=== PATIENT | male | born 1980 | race Caucasian/White ===

== ENCOUNTER 2022-11-26 07:53 | Outpatient (CLI) | payer OTHER, SELFPAY ==
--- NOTE | ~2022-11-26 | XR_ITS ---
XR chest 2V 11/26/2022 09:11 Indication: Asthma. Procedure: PA and lateral views the chest Comparison: Comparison to multiple prior studies sequentially, with oldest reviewed study dated 03/09. Findings: There is been progression of bandlike opacities in the lung bases, most likely atelectasis/ scarring. There is scoliosis. No edema, pleural effusion or pneumothorax. No acute osseous abnormalit y. Impression: 1: Continued progression of bandlike opacities of the lung bases, most likely atelectasis/scarring. Reviewed, dictated and finalized at location [] Impression: 1: Continued progression of bandlike opacities of the lung bases, most likely a telectasis/scarring.
[2022-11-26 08:21] LABS: Basophils Absolute Auto 0.1 K/mm3 (0.0-0.1); Basophils Percent Auto 0.8 % (0.2-1.2); Eosinophils Absolute Auto 0.2 K/mm3 (0-0.3); Eosinophils Percent Auto 2.5 % (0-4.4); Hematocrit 46.8 % (42.0-52.0); Hemoglobin 15.7 g/dL (14.0-18.0); Immature Granulocyte Absolute 0.03 K/mm3 (0.00-0.031); Immature Granulocyte Percent A 0.3 % (0-0.5); Lymphocytes Percent Auto 18.3 % (18.3-44.2); Mean Corpuscular HGB Conc 33.5 g/dl (32-36); Mean Corpuscular Hemoglobin 30.7 pg (26-34); Mean Corpuscular Volume 91.4 fl (80-100); Mean Platelet Volume 8.8 fl (7.4-10.4); Monocytes Absolute Auto 0.8 K/mm3 (0.1-0.6); Monocytes Percent Auto 8.6 % (2.6-8.5); Neutrophils Absolute Auto 6.1 K/mm3 (1.3-6.7); Neutrophils Percent Auto 69.5 % (45.5-73.1); Platelet Count Result 227 k/mm3 (150-375); Red Blood Count 5.12 M/mm3 (4.6-6.20); Red Cell Distribution Width 13.2 % (11.5-14.5); White Blood Count 8.8 K/mm3 (4.5-10.0)
--- NOTE | 2022-11-30 19:22 | WPDPFTINT ---
PFT Procedure Performed PFT Procedure Performed Spirometry with Pre/Post Bronchodilator Plethysmography (Lung Vol) Diffusing Cap (DLCO) Flow Vol Loop PFT Interpretation DOS: 11/26/2022 REQUESTING: Beto Harrington APRN REASON FOR TESTING: Asthma PULMONARY FUNCTION TESTS Spirometry: pre bronchodilator FEV1 is 1.55 L, 35% predicted, severely reduced. The pre bronchodilator FVC is 3.23 L, 58%, moderately reduced. The FEV1/FVC ratio is 48%, reduced consistent with airflow obstruction. After bronchodilator, FEV1 increases 36%, 2.11 L, 48% predicted. This is still below normal. After bronchodilator, there is a 13% increase in the FVC, 3.64 L, 66% predicted. The FEV1/FVC ratio after bronchodilator is 58%, reduced. This is a significant response to bronchodilator. Lung volumes: Total lung capacity is 6.77 L, 92% predicted, normal. Residual volume is 3.27 L, 163% predicted, severe air trapping. RV/TLC is 48%, above normal, consistent with air trapping. Airway resistance is elevated, 4.52 cmH20/L/sec, 286% predicted. Diffusion: DLCO is 21.5, 65%, reduced. DLCO/VA 4.58, 98%, normal. Flow volume loop: There is coving of the expiratory limb consistent with airflow obstruction. IMPRESSION: This study shows severe obstructive ventilatory impairment with a robust response to bronchodilator, air trapping and mild diffusion impairment which corrects for alveolar volume. Compared to a prior study 04/28/2022 at [facility], the pattern is similar; he had a moderate obstructive airflow impairment, air trapping and reduced diffusing capacity corrects to normal after adjustment for alveolar volume. He also had a 7% drop after bronchodilator administration. Liseth Oleary MD
== END 2022-11-26 07:54 | disposition home or self-care (01) ==
PROVIDERS: PCP Physician Assistant; Visit Provider Internal Medicine Pulmonary Disease
DX: J44.9 Chronic obstructive pulmonary disease, unspecified (principal); J45.909 Unspecified asthma, uncomplicated; R94.2 Abnormal results of pulmonary function studies
CPT/HCPCS: 36415; 71046; 85025; 94060; 94726; 94729

== ENCOUNTER 2024-02-03 11:16 | Outpatient (CLI) | payer OTHER, SELFPAY ==
--- NOTE | ~2024-02-03 | XR_ITS ---
EXAMINATION: XR thoracic spine 3V DATE: 02/03/2024 11:46 INDICATION: Right-sided back pain. TECHNIQUE: 3 views of thoracic spine were obtained. COMPARISON: None. FINDINGS: There is 37 degrees levoscoliosis from T4 to T8. Vertebral body heights are normal. There i s mildly decreased disc height at multiple levels in upper and mid thoracic spine. IMPRESSION: 1. Mild thoracic spondylosis. 2. Thoracic levoscoliosis. Reviewed, dictated and finalized at location A.
== END 2024-02-03 11:17 | disposition home or self-care (01) ==
LOC: ANHIMG 11:22
PROVIDERS: PCP Physician Assistant; Visit Provider Physician Assistant
DX: M47.814 Spondylosis without myelopathy or radiculopathy, thoracic region (principal); M41.9 Scoliosis, unspecified; M54.6 Pain in thoracic spine
CPT/HCPCS: 72072

== ENCOUNTER 2024-03-14 08:00 | Outpatient (RCR) | payer OTHER, SELFPAY ==
--- NOTE | 2024-02-15 08:57 | OPREHPOC ---
Outpatient Therapy Plan of Care This is a Multidisciplinary Plan of Care that may contain components documented by all disciplines (PT, OT, and ST.) PT Problem 1 PT Problem #1 Knowledge Deficit PT Goal 1 Goal / Goal Update *indep with HEP * good shoulder position with exercises Target Visit 6 PT Problem 2 PT Problem #2 Pain PT Goal 1 Goal / Goal Update 1* pt report radicular pain into R UE ~ 25% day Target Visit 6 PT Problem 3 PT Problem #3 Impaired Functional Mobil PT Goal 1 Goal / Goal Update pt perform 3 reps without an increase in symptoms/ pain: 1* cervical rotation to R 2* cervical extension 3* cervical retraction Target Visit 6
--- NOTE | 2024-02-15 09:03 | PTOPEVAL1 ---
Assessment and note entered by Allie Valladares, PT Evaluation Information Assessment Status Evaluation ICD-10 Condition Codes (PT) M54.6 Onset Jan 2024 Subjective Information hurt his back when stretching with arms behind his head, started having pain behind R shoulder blade, with tinging into his arm- from elbow into all of his fingers; went to urgent care due to the pain; no xrays or imaging done; R hand dominant; PMHx: neck pain with headaches every 2-3 months at most; have not had tingling in his arm with it. Activity: IT dept--computer work; is able to do everything, but has tingling in his R hand and fingers; Reported Pain Level Pain Score Self Report Additional Pain Score Comments rating of R arm tingling 0-6/10 in past few days; from elbow to fingers ~ 75% day; increase pain: leaning on R arm decrease pain: moving and shaking R arm Assessment PT Clinical Summary Yuri has the diagnosis of thoracic pain. He reports tingling ~ 75% day into R forearm and hand. His self assessment with the Oswestry is 0%-- reports he is able to do everything, but has tingling in his arm and pain in shoulder blade. He is R hand dominant and has a history of neck pain and headaches. With the evaluation: his cervical and UE ranges are WNL, with report of increase radicular pain and pull in posterior shoulder with cervical rotation to R, cervical extension and retraction/ chin tucks. He does not report any pain with palpation over R shoulder or scapular areas; wtih supine cervical palpation--tightness and tenderness over R cervical paraspinals and upper traps. He has poor position of cervical and shoulders/ upper trunk. Skilled PT services are indicated for modalities to decrease pain and spasms over cervical area, therapeutic exercises to increase cervical and thoracic posture and education for HEP and posture /body mechanics. Plan of Care Interventions Elec
--- NOTE | 2024-03-02 08:38 | PCPTNOTE ---
Pt NS as he forgot about his appt. He was offered 2 other times to come but unable due to work.
--- NOTE | 2024-03-14 08:44 | PTOPDC ---
Assessment and note entered by Allie Valladares, PT Discharge Report Assessment Status Discharge ICD-10 Condition Codes (PT) M54.6 Onset Jan 2024 Subjective Information saw ortho last week, going to be scheduled for EMG and MRI of neck; been doing the exercises; therapy has helped; computer at work is set up OK get up and stretch about every 30-60 minutes; Reported Pain Level Pain Score Self Report Additional Pain Score Comments pain range in the past week 0-3/ 10; pain in posterior shoulder- jabs quickly tingling into R 3,4 fingers and up forearm and elbow-total of about 1 hour/day increase pain: not real pattern, sometimes when bring my shoulder down with shoulder rolls have not been having any headaches decrease pain: rest no pain meds for the past week, if take anything is over the counter new script for predisone- taken only one dose; Assessment PT Clinical Summary [facility] has received 5 PT sessions. Compared to the initial evaluation: pain decreased from 0-6/10 to 0-3/10; radicular pain into R UE from 75% of day to total of 1 hour/day; continues to have tingling from R 3,4 fingers to forearm and elbow; Oswestry self rating of 0% limitation in activity level; cervical extension is the only cervical motion that increases his pain; full active ROM of neck and shoulders; education completed for HEP and posture with work and exercises; The goals were achieved except goal for pain free cervical extension motion. Discharge PT and he is to continue with the HEP. He is under the care of ortho dr and awaiting MRI of neck and EMG of R arm. Plan of Care PT Services Indicated No
== END 2024-03-14 09:05 | disposition home or self-care (01) ==
LOC: ANHPT 08:00
PROVIDERS: PCP Physician Assistant; Visit Provider Physician Assistant
DX: M54.6 Pain in thoracic spine (principal)
CPT/HCPCS: 97110; 97161; 97530

== ENCOUNTER 2025-01-17 02:08 | Day surgery (SDC) | payer OTHER, SELFPAY ==
[2025-01-02 12:52] VITALS: BMI 30.9
--- OUTSIDE RECORDS SUMMARY | 2025-01-17 02:11 | XMS_ITS | Clinical Summary ---
Author Organization [facility] Address [address] [place] [address] Care Team Providers Care Director Part Name Role Phone Unknown, Provider Primary Care Provider Unavaila ble Source Comments [facility],non-owned Affiliates and Associated Physician Practices is amultiple site organization consisting of ambulatory clinics and hospital sitesin [place], [place]. This disclosure is being madepursuant to the Care Everywhere program and may not contain all information available regarding this patient. Last updated 18.[facility] Allergies Active Allergy Reactions Criticality Noted Date Comments Egg Yolk Unknown 04/22/2024 Food Anaphylaxis High 12/30/2017 NUTS Peanut-Derived Unknown 04/22/2024 Penicillins Nausea and/or Vomiting,Vomiting Medium 12/30/2017 As a young child Tree Nuts Anaphylaxis High 12/30/2017 NUTS Medications * Be aware that medications may not be up to date on this document. Alwaysverify current medications with the patient. albuterol HFA (Proventil; Ventolin; Proair) 108 (90 Base) MCG/ACT inhaler Inhale 2 (two) puffs by mouth every 6 hours as needed for Wheezing, Cough or Shortness of Breath 02/16/20 24 Active Azelastine HCl 137 MCG/SPRAY SOLN [employer] 2 puffs into the nose 2 times daily 12/17/19 24 Active EPINEPHrine (Epipen) 0.3 MG/0.3ML auto-injector pen Inject 0.3 mL into muscle once as needed for Anaphylaxis 03/02/20 23 Active famotidine (Pepcid) 40 MG tablet Take 1 (one) tablet by mouth once daily 01/04/20 24 Active levalbuterol (Xopenex) 1.25 MG/3ML nebulizer solution Inhale 3 mL by mouth every 8 hours as needed for Shortness of Breath or Wheezing 02/02/20 24 Active Lactobacillus (Acidophilus Probiotic) 10 MG Take 1 tablet by mouth as directed Active [place]-3 Fatty Acids (fish oil) 1000 MG capsule Take 1 (one) capsule by mouth as directed Active tezepelumab-ekk o (Tezspire) 210 MG/1.91ML prefilled syringe Inject 210 (two hundred ten) mg subcutaneously once Active Blood Glucose Monitoring Suppl ([employer] Reflect) w/Device KIT as directed 03/17/20 24 Active Farxiga 10 MG tablet Take 1 (one) tablet by mouth once daily Active [employer] test strip Use 1 (one) strip as directed 03/15/20 24 Active atorvastatin (Lipitor) 40 MG tablet Take 1 (one) tablet by mouth at bedtime Active fluticasone propionate (Flonase) 50 MCG/ACT nasal spray [employer] 2 (two) sprays into each nostril 2 times daily Active montelukast (Singulair) 10 MG tablet Take 1 (one) tablet by mouth once daily Active fluticasone-soo meterol (Advair Diskus) 500-50 MCG/ACT inhaler Inhale 1 (one) puff by mouth 2 times daily 06/06/20 24 Active Tiotropium [place] Monohydrate (Spiriva Respimat) 1.25 MCG/ACT AERS Inhale 2 puffs by mouth once daily 06/06/20 24 Active Active Problems Problem Noted Date Diagnosed Date Type 2 diabetes mellitus 03/15/2024 Environmental allergies 03/24/2023 Seasonal allergic rhinitis 09/26/2022 Chronic obstructive pulmonary disease 09/26/2022 Obesity 04/15/2022 Hyperlipidemia 04/15/2022 History of second hand smoke exposure 04/15/2022 Dyspnea on exertion 04/15/2022 Eczema 07/01/2021 Allergies 07/01/2021 Deviated nasal septum 04/02/2020 S/P laparoscopic cholecystectomy 11/06/2018 Overview (03/07/2024): Last Assessment & Plan: -11/05/2018 Transaminitis 11/05/2018 Overview (03/07/2024): Last Assessment & Plan: Status post lap deja. Unable to do cholangiogram. -T bili and AST, ALT trending up MRCP showed 2.5 mm distal common bile duct filling defect could represent stone. GI consulted. Plan for ERCP today. Last Assessment & Plan: Status post lap deja. Unable to do cholangiogram. -T bili and AST, ALT trending up MRCP showed 2.5 mm distal common bile duct filling defect could represent stone. GI consulted. Plan for ERCP today. Fatty liver 11/05/2018 Overview (03/07/2024): Last Assessment & Plan: -obesity -dietary couseling Last Assessment & Plan: -obesity -dietary couseling Asthma 11/05/2018 Overview (03/07/2024): Last Assessment & Plan: -chronic since childhood -Continue PRN Xopenex Last Assessment & Plan: -chronic since childhood -Continue PRN Xopenex Immunizations Immunization Administration Dates Next Due INFLUENZA VACCINE, TRIV. (AF LURIA, FLUZONE TRIVALENT; 6MO+) (IIV3) 04/18/2019 COVID MODERNA 12+ yr 50mcg/0.5mL 02/29/2024,1008/2022 INFLUENZA VACCINE 02/29/2024,04/18/2019 INFLUENZA VACCINE, CELL CULT URE, TRIV. (FLUCELVAX TRIVALENT; 6MO+), 0.5 ML (CCIIV3) 02/29/2024 INFLUENZA VACCINE, QUADR. (F LUZONE; FLULAVAL; FLUARIX; AFLURIA QUADRIVALENT; 6MO+), 0.5 ML (IIV4) 03/24/2023,04/15/2022 PNEUMOCOCCAL PCV VACCINE 04/15/2022 Social History Tobacco Use Types Packs/Day Years Used Date Smoking Tobacco: Never Smokeless Tobacco: Never Tobacco Cessation:Counseling Given: Not Answered PHQ-2 Answer Date Recorded Patient Health Questionnaire-2 Score 0 07/27/2024 Sex and Gender Information Value Date Recorded Sex Assigned at Male 03/29/2024 1:05 PM CDT Legal Sex Male 1:16 PM CDT Gender Identity Male 03/29/2024 1:05 PM CDT Sexual Orientation Bisexual 03/29/2024 1: 05 PM CDT Plan of Treatment Health Maintenance Due Date Last Done Comments COLOGUARD (AGES 45-75) - COLON CA SCREENING 1979 COLON MONITORING 1979 COLONOSCOPY - COLON CA SCREENING 1979 CT COLONOGRAPHY - COLON CA SCREENING 1979 Colorectal Cancer Screening 1979 FIT - COLON CA SCREENING 1979 FLEX SIG - COLON CA SCREENING 1979 HIV SCREENING 10/01/1994 HEPATITIS C SCREENING 09/27/1997 DTAP/TDAP/TD VACCINES (1 - Tdap) 10/01/1998 HEPATITIS B VACCINE (1 of 3 - 19+ 3-dose series) 10/01/1998 HPV VACCINE (1 - 3-dose SCDM series) 10/01/2006 PNEUMOCOCCAL VACCINE (2 of 2 - PPSV23, PCV20, or PCV21) 06/10/2022 04/15/2022 DIABETES-SERUM CREATININE 03/20/2024 03/20/2023 DIABETES RETINOPATHY SCREENING 04/22/2024 DIABETES-FOOT EXAM WITH MONOFILAMENT 04/22/2024 DIABETES-HGB A1C 04/22/2024 DIABETES - URINE PROTEIN SCREENING 06/08/2024 INFLUENZA VACCINE (#1) 2025 , 02/29/2024, 03/24/2023, Additional history exists ZOSTER VACCINE (1 of 2) 10/01/2029 COVID-19 VACCINE Completed 02/29/2024, 03/30/2023 DEPRESSION SCREENING Completed 07/28/2024, 03/10/20 HIB VACCINE Aged Out No longer eligi ble based on patient's age to complete this topic MENINGOCOCCAL (Group B) VACCINE SHARED DECISION-MAKING Aged Out No longer eligible based on patient's age to complete this topic MENINGOCOCCAL GROUPS A/C/Y/W VACCINE Aged Out No longer eligible based on patient's age to complete this topic Insurance [facility] Address: [facility] [address] [place] [address] Care Teams Director Part Relationship Specialty Start Date End Date Unknown, Provider PCP - General 03/10/24
--- OUTSIDE RECORDS SUMMARY | 2025-01-17 02:11 | XMS_ITS | Patient Health Record ---
Author Organization Pending Sale To [facility] [employer] [place] ([address]) Address [address] [place] [address] Care Team Providers Care Shipping And Receiving Coordinator Name Role Phone PaulinaNikia rivera Primary Care Provider Unav Meir Simmons Unavailable [phone] Stephon Lyman Unavailable Unavailable Ney Means Unavailable [phone] Cassidy Batista Unavailable [phone] Allergies Allergen (clinical drug ingredient) Drug/Non Drug Allergy documented on EMR Reaction Allergy Type Onset Date Status penicillin G Penicillin G Potassium unknown reaction Drug Allergy Active penicillin V Penicillin V Potassium unknown reaction Drug Allergy Active Results Component Value Reference Range Notes Spirometry Reviewed date:06/06/2024 03:18:56 PM Interpretation:Abnormal - FVL Performing Lab: Notes/Report: Abnormal - FVL SpiroPreBronchodilator_FVC 3.88 SpiroPostBronchodilator_FEF25_75 0 SpiroPreBronchodilator_FEF25_75 1.62 SpiroPreBronchodilator_FEV1 2.6 SpiroPrecentPredictionPost_FEF25_75 0 SpiroPrecentPredictionPost_FEV1 0 SpiroPrecentPredictionPost_FEV1_OVER_FVC 0 SpiroPrecentPredictionPost_FVC 0 SpiroPrecentPredictionPre_FEF25_75 39.6 SpiroPrecentPredictionPre_FEV1 63.4 SpiroPrecentPredictionPre_FEV1_OVER_FVC 82.9 SpiroPrecentPredictionPre_FVC 76.4 SpiroPredicted_FEF25_75 4.09 SpiroPreBronchodilator_FEV1_OVER_FVC 66.88 SpiroPreBronchodilator_PEF 6.18 SpiroPostBronchodilator_FVC 0 SpiroPostBronchodilator_FEV1 0 SpiroPostBronchodilator_FEV1_OVER_FVC 0 SpiroPostBronchodilator_PEF 0 SpiroPredicted_FVC 5.08 SpiroPredicted_FEV1 4.1 SpiroPredicted_FEV1_OVER_FVC 80.69 SpiroPredicted_PEF 9.18 Spirometry Reviewed date:12/26/2024 04:17:01 PM Interpretation:Abnormal Performing Lab: Notes/Report: Abnormal SpiroPreBronchodilator_FVC 4.1 SpiroPostBronchodilator_FEF25_75 0 SpiroPreBronchodilator_FEF25_75 1.47 SpiroPreBronchodilator_FEV1 2.53 SpiroPrecentPredictionPost_FEF25_75 0 SpiroPrecentPredictionPost_FEV1 0 SpiroPrecentPredictionPost_FEV1_OVER_FVC 0 SpiroPrecentPredictionPost_FVC 0 SpiroPrecentPredictionPre_FEF25_75 36.3 SpiroPrecentPredictionPre_FEV1 62.2 SpiroPrecentPredictionPre_FEV1_OVER_FVC 76.6 SpiroPrecentPredictionPre_FVC 81 SpiroPredicted_FEF25_75 4.05 SpiroPreBronchodilator_FEV1_OVER_FVC 61.66 SpiroPreBronchodilator_PEF 5.76 SpiroPostBronchodilator_FVC 0 SpiroPostBronchodilator_FEV1 0 SpiroPostBronchodilator_FEV1_OVER_FVC 0 SpiroPostBronchodilator_PEF 0 SpiroPredicted_FVC 5.06 SpiroPredicted_FEV1 4.07 SpiroPredicted_FEV1_OVER_FVC 80.54 SpiroPredicted_PEF 9.15 Reason For Referral No Information Medications Medication SIG (Take, Route, Frequency, Duration) Notes Start Date End Date Status EPIPEN 2-AVELINA 0.3 mg as directed intramuscularly once; Duration: 30 days Active Spiriva Respimat 1.25 MCG/ACT 2 puffs Inhalation Once a day; Duration: 30 days Active FAMOTIDINE 40 mg 1 tab(s) orally 30 mins prior to allergy shots; Duration: 30 days Not-Taking Advair Diskus 500-50 MCG/ACT 1 puff Inhalation Twice a day; Duration: 30 days Active EPIPEN 2-AVELINA 0.3 mg as directed intramuscularly once; Duration: 30 days Not-Taking Cetirizine HCl 10 MG 1 tab(s) orally once a day; Duration: 30 days Active TEZSPIRE PRE-FILLED SYRINGE ekko 210 mg/1.91 mL as directed subcutaneously every 4 weeks Active MONTELUKAST 10 mg 1 tab(s) orally 30 minutes prior to allergy shots; Duration: 30 days Not-Taking AIRSUPRA 90 mcg-80 mcg/inh 2 INH inhaled 4 times a day; Duration: 30 days Active Airsupra 90-80 MCG/ACT INHALE 2 PUFFS 4 TIMES PER DAY 30; Duration: 30 Not-Taking SIT (Traditional) variable - see record per schedule subcutaneous per schedule; Duration: 999 days Active FLUTICASONE NASAL 50 mcg/inh 2 spray(s) in each nostril BID; Duration: 30 days Not-Taking Azelastine HCl 137 MCG/SPRAY 2 sprays in each nostril Nasally Twice a day; Duration: 30 days Active CETIRIZINE 10 mg 1 tab(s) orally once a day; Duration: 30 days Not-Taking Spiriva Respimat 1.25 MCG/ACT 2 puff(s) inhaled once a day; Duration: 30 days Not-Taking ADVAIR DISKUS 500 mcg-50 mcg 1 INH inhaled 2 times a day; Duration: 30 days Not-Taking EpiPen 2-Avelina 0.3 mg as directed intramuscularly once; Duration: 30 days Active DUPIXENT PRE-FILLED SYRINGE 300 MG/2 ML DIRECTED SUBCUTANEOUSLY EVERY 2 WEEKS *Please review for potential replacement for e-prescription and drug interaction check* Not-Taking NASAL WASHES N/A as directed intranasally as needed; Duration: 30 days Active predniSONE 5 MG 1 tablet Orally Once a day Not-Taking DUPIXENT PRE-FILLED PEN 300 MG/2 ML DIRECTED SUBCUTANEOUSLY EVERY 2 WEEKS *Please review for potential replacement for e-prescription and drug interaction check* Not-Taking Azelastine HCl 0.05 % 1 gtt in each affected eye 2 times a day; Duration: 30 day(s) Not-Taking Famotidine 40 MG TAKE 1 TABLET BY MOUTH 30 MINUTES PRIOR TO ALLERGY SHOTS FOR 90 DAYS; Duration: 90 Active Fluticasone Propionate 50 MCG/ACT 1 spray in each nostril Nasally Twice a day; Duration: 90 days 12/26/2024 Active LEVALBUTEROL 1.25 mg/3 mL 3 mL by nebulizer 3 times a day; Duration: 30 day(s) 03/02/2023 Not-Taking CETIRIZINE 10 mg 1 tab(s) orally once a day; Duration: 30 days Active AZELASTINE OPHTHALMIC 0.05% 1 gtt in each affected eye 2 times a day; Duration: 30 day(s) Not-Taking AIRSUPRA 90 mcg-80 mcg/inh INHALE 2 PUFFS 4 TIMES PER DAY; Duration: 30 Not-Taking FAMOTIDINE 40 mg 1 tab(s) orally 30 mins prior to allergy shots; Duration: 30 days Not-Taking FLUTICASONE NASAL 50 mcg/inh 2 spray(s) in each nostril BID; Duration: 30 days Not-Taking Albuterol Sulfate HFA 108 (90 Base) MCG/ACT INHALE 2 PUFFS BY MOUTH EVERY 6 HOURS FOR 30 DAYS; Duration: 17 Active ATORVASTATIN 10 mg 1 tab(s) orally once a day Not-Taking SPIRIVA RESPIMAT 1.25 mcg/inh 2 puff(s) inhaled once a day; Duration: 30 days Not-Taking MONTELUKAST 10 mg 1 tab(s) orally 30 minutes prior to allergy shots; Duration: 30 days Not-Taking Atorvastatin Calcium 10 MG 1 tab(s) orally once a day Active Azelastine HCl 137 MCG/SPRAY 2 puff in each nostril Nasally Twice a day; Duration: 90 days Active Fluticasone-Salmet carole 500-50 MCG/ACT INHALE 1 PUFF TWICE A DAY; Duration: 90 Active Farxiga 10 MG TAKE 1 TABLET BY MOUTH EVERY DAY Oral; Duration: 90 Days Active Fluticasone Propionate 50 MCG/ACT 2 spray(s) in each nostril BID; Duration: 30 days Active Levalbuterol HCl 1.25 MG/3ML 3 mL by nebulizer 3 times a day; Duration: 30 days Active Montelukast Sodium 10 MG 1 tab(s) orally 30 minutes prior to allergy shots; Duration: 30 days Active Social History Tobacco Use: Social History Observation Description Date Details (start date - stop date) Never Smoker NA - NA Smoking Smart Form: Question Answer Notes Are you a: never smoker Tobacco Control (Standard) Question Answer Notes Tobacco use: Nonsmoker Problems Problem Type SNOMED Code ICD Code Onset Dates Problem Status W/U Status Risk Notes Problem Allergy to penicillin (42868489) Allergy status to penicillin (Z88.0) Active confirmed Problem Chronic allergic conjunctivitis (40698121) Other chronic allergic conjunctivitis (H10.45) Active confirmed Problem Allergic rhinitis caused by pollen (disorder) (39314615) Allergic rhinitis due to pollen (J30.1) Active confirmed Problem Allergic rhinitis (83890699) Other allergic rhinitis (J30.89) Active confirmed Problem Uncomplicated severe persistent asthma (990934932) Severe persistent asthma, uncomplicated (J45.50) Active confirmed Problem Allergic rhiniti s due to animal (cat) (dog) hair and dander (J30.81) Active confirmed Problem Allergy to peanuts (77454819) Allergy to peanuts (Z91.010) Active confirmed Problem Food allergy (375375891) Allergy to other foods (Z91.018) Active confirmed Problem Pruritus (487228504) Pruritus, unspecified (L29.9) Active confirmed Vital Signs Oximetry 96 % 12/26/2024 Blood pressure diastolic 73 mm Hg 12/26/2024 Height 70 in 12/26/2024 Blood pressure systolic 112 mm Hg 12/26/2024 Weight 216.4 lbs 12/26/2024 BMI 31.05 kg/m2 12/26/2024 Encounters Encounter Location Date Provider Diagnosis [facility] [address] [place] [phone] 07/04/2024 Ney Means Allergic rhinitis du e to pollen J30.1 ; Allergic rhinitis due to animal (cat) (dog) hair and dander J30.81 ; Other allergic rhinitis J30.89 and Other chronic allergic conjunctivitis H10.45 [facility] [address] [place] [phone] 01/18/2024 Ney Means Allergic rhinitis du e to pollen J30.1 ; Allergic rhinitis due to animal (cat) (dog) hair and dander J30.81 ; Other allergic rhinitis J30.89 and Other chronic allergic conjunctivitis H10.45 [facility] [address] [place] [address] 01/25/2024 Ney Means Allergic rhinitis du e to pollen J30.1 ; Allergic rhinitis due to animal (cat) (dog) hair and dander J30.81 ; Other allergic rhinitis J30.89 and Other chronic allergic conjunctivitis H10.45 [facility] [address] [place] [address] [place] [address] [address] 01/28/2024 Ney Means Severe persistent asthma, uncomplicated J45.[address] [place] [address] [address] 02/01/2024 Ney Means Allergic rhinitis du e to pollen J30.1 ; Allergic rhinitis due to animal (cat) (dog) hair and dander J30.81 ; Other allergic rhinitis J30.89 and Other chronic allergic conjunctivitis H10.45 [facility] [address] [place] [address] [place] [address] [address] 02/09/2024 Ney Means Allergic rhinitis du e to pollen J30.1 ; Allergic rhinitis due to animal (cat) (dog) hair and dander J30.81 ; Other allergic rhinitis J30.89 and Other chronic allergic conjunctivitis H10.45 [facility] [address] [place] [address] [place] [address] [address] 02/15/2024 Ney Means Allergic rhinitis du e to pollen J30.1 ; Allergic rhinitis due to animal (cat) (dog) hair and dander J30.81 ; Other allergic rhinitis J30.89 and Other chronic allergic conjunctivitis H10.[address] [place] [address] [address] 02/22/2024 Ney Means Allergic rhinitis du e to pollen J30.1 ; Allergic rhinitis due to animal (cat) (dog) hair and dander J30.81 ; Other allergic rhinitis J30.89 and Other chronic allergic conjunctivitis H10.[address] [address] 02/25/2024 Ney Means Severe persistent asthma, uncomplicated J45.[address] [place] [address] [address] 02/29/2024 Ney Means Allergic rhinitis du e to pollen J30.1 ; Allergic rhinitis due to animal (cat) (dog) hair and dander J30.81 ; Other allergic rhinitis J30.89 and Other chronic allergic conjunctivitis H10.45 [facility] [address] [place] [address] 03/07/2024 Ney Means Allergic rhinitis du e to pollen J30.1 ; Allergic rhinitis due to animal (cat) (dog) hair and dander J30.81 ; Other allergic rhinitis J30.89 and Other chronic allergic conjunctivitis H10.[address] [address] 03/14/2024 Ney Means Allergic rhinitis du e to pollen J30.1 ; Allergic rhinitis due to animal (cat) (dog) hair and dander J30.81 ; Other allergic rhinitis J30.89 and Other chronic allergic conjunctivitis H10.[address] [address] 03/21/2024 Ney Means Allergic rhinitis du e to pollen J30.1 ; Allergic rhinitis due to animal (cat) (dog) hair and dander J30.81 ; Other allergic rhinitis J30.89 and Other chronic allergic conjunctivitis H10.45 [facility] [address] [place] [address] 03/24/2024 Ney Means Severe persistent asthma, uncomplicated J45.[address] [address] 03/28/2024 Meir Patterson Allergic rhinitis du e to pollen J30.1 ; Severe persistent asthma, uncomplicated J45.50 ; Allergic rhinitis due to animal (cat) (dog) hair and dander J30.81 ; Other allergic rhinitis J30.89 ; Other chronic allergic conjunctivitis H10.45 ; Allergy to peanuts Z91.010 ; Allergy to other foods Z91.018 and Allergy status to penicillin Z88.[address] [address] 04/04/2024 Ney Means Allergic rhinitis du e to pollen J30.1 ; Allergic rhinitis due to animal (cat) (dog) hair and dander J30.81 ; Other allergic rhinitis J30.89 and Other chronic allergic conjunctivitis H10.45 [facility] [address] [place] [address] [place] [address] [address] 04/11/2024 Ney Miguelangel Allergic rhinitis du e to pollen J30.1 ; Allergic rhinitis due to animal (cat) (dog) hair and dander J30.81 ; Other allergic rhinitis J30.89 and Other chronic allergic conjunctivitis H10.45 [facility] [address] [place] [address] [place] [address] [address] 04/18/2024 Neyamarilis Means Allergic rhinitis du e to pollen J30.1 ; Allergic rhinitis due to animal (cat) (dog) hair and dander J30.81 ; Other allergic rhinitis J30.89 and Other chronic allergic conjunctivitis H10.45 [facility] [address] [place] [address] [place] [address] [address] 04/21/2024 Ney Means Severe persistent asthma, uncomplicated J45.[address] [address] 04/25/2024 Ney Means Allergic rhinitis du e to pollen J30.1 ; Allergic rhinitis due to animal (cat) (dog) hair and dander J30.81 ; Other allergic rhinitis J30.89 and Other chronic allergic conjunctivitis H10.45 [facility] [address] [place] [address] [place] [address] [address] 05/02/2024 Ney Means Allergic rhinitis du e to pollen J30.1 ; Allergic rhinitis due to animal (cat) (dog) hair and dander J30.81 ; Other allergic rhinitis J30.89 and Other chronic allergic conjunctivitis H10.45 [facility] [address] [place] [address] [place] [address] [address] 05/09/2024 Ney Means Allergic rhinitis du e to pollen J30.1 ; Allergic rhinitis due to animal (cat) (dog) hair and dander J30.81 ; Other allergic rhinitis J30.89 and Other chronic allergic conjunctivitis H10.45 [facility] [address] [place] [address] [place] [address] [address] 05/16/2024 Ney Means Allergic rhinitis du e to pollen J30.1 ; Allergic rhinitis due to animal (cat) (dog) hair and dander J30.81 ; Other allergic rhinitis J30.89 and Other chronic allergic conjunctivitis H10.[address] [address] 05/19/2024 Ney Means Severe persistent asthma, uncomplicated J45.[address] [address] 05/23/2024 Ney Means Allergic rhinitis du e to pollen J30.1 ; Allergic rhinitis due to animal (cat) (dog) hair and dander J30.81 ; Other allergic rhinitis J30.89 and Other chronic allergic conjunctivitis H10.45 [facility] [address] [place] [address] 06/06/2024 Meir Patterson Allergic rhinitis du e to pollen J30.1 ; Severe persistent asthma, uncomplicated J45.50 ; Allergic rhinitis due to animal (cat) (dog) hair and dander J30.81 ; Other allergic rhinitis J30.89 ; Other chronic allergic conjunctivitis H10.45 ; Pruritus, unspecified L29.9 ; Allergy to peanuts Z91.010 ; Allergy to other foods Z91.018 and Allergy status to penicillin Z88.0 [facility] [address] [place] [address] 06/23/2024 Ney Means Severe persistent asthma, uncomplicated J45.[address] [address] 06/27/2024 Ney Means Allergic rhinitis du e to pollen J30.1 ; Allergic rhinitis due to animal (cat) (dog) hair and dander J30.81 ; Other allergic rhinitis J30.89 and Other chronic allergic conjunctivitis H10.[address] [address] 07/04/2024 Ney Means Cough, unspecified R05.9 ; Shortness of breath R06.02 ; Wheezing R06.2 and Abnormal results of pulmonary function studies R94.[address] [address] 07/11/2024 Ney Means Allergic rhinitis du e to pollen J30.1 ; Allergic rhinitis due to animal (cat) (dog) hair and dander J30.81 ; Other allergic rhinitis J30.89 and Other chronic allergic conjunctivitis H10.45 [facility] [address] [place], [place] [address] [address] 07/18/2024 Ney Means Allergic rhinitis du e to pollen J30.1 ; Allergic rhinitis due to animal (cat) (dog) hair and dander J30.81 ; Other allergic rhinitis J30.89 and Other chronic allergic conjunctivitis H10.45 [facility] [address] [place] [address] [place] [address] [address] 07/21/2024 Ney Means Severe persistent asthma, uncomplicated J45.[address] [place] [address] [address] 07/25/2024 Ney Means Allergic rhinitis du e to pollen J30.1 ; Allergic rhinitis due to animal (cat) (dog) hair and dander J30.81 ; Other allergic rhinitis J30.89 and Other chronic allergic conjunctivitis H10.45 [facility] [address] [place] [address] [place] [address] [address] 08/01/2024 Neyamarilis Means Allergic rhinitis du e to pollen J30.1 ; Allergic rhinitis due to animal (cat) (dog) hair and dander J30.81 ; Other allergic rhinitis J30.89 and Other chronic allergic conjunctivitis H10.45 [facility] [address] [place] [address] [place] [address] [address] 08/08/2024 Ney Means Allergic rhinitis du e to pollen J30.1 ; Allergic rhinitis due to animal (cat) (dog) hair and dander J30.81 ; Other allergic rhinitis J30.89 and Other chronic allergic conjunctivitis H10.45 [facility] [address] [place] [address] [place] [address] [address] 08/15/2024 Ney Means Allergic rhinitis du e to pollen J30.1 ; Allergic rhinitis due to animal (cat) (dog) hair and dander J30.81 ; Other allergic rhinitis J30.89 and Other chronic allergic conjunctivitis H10.45 [facility] [address] [place] [address] [place] [address] [address] 08/22/2024 Ney Means Allergic rhinitis du e to pollen J30.1 ; Allergic rhinitis due to animal (cat) (dog) hair and dander J30.81 ; Other allergic rhinitis J30.89 and Other chronic allergic conjunctivitis H10.[address] [address] 08/25/2024 Ney Means Severe persistent asthma, uncomplicated J45.[address] [address] 08/29/2024 Meir Patterson Allergic rhinitis du e to pollen J30.1 ; Severe persistent asthma, uncomplicated J45.50 ; Allergic rhinitis due to animal (cat) (dog) hair and dander J30.81 ; Other allergic rhinitis J30.89 ; Other chronic allergic conjunctivitis H10.45 ; Pruritus, unspecified L29.9 ; Allergy to peanuts Z91.010 ; Allergy to other foods Z91.018 and Allergy status to penicillin Z88.0 [facility] [address] [place] [address] 09/05/2024 Ney Means Allergic rhinitis du e to pollen J30.1 ; Allergic rhinitis due to animal (cat) (dog) hair and dander J30.81 ; Other allergic rhinitis J30.89 and Other chronic allergic conjunctivitis H10.[address] [address] 09/19/2024 Ney Means Allergic rhinitis du e to pollen J30.1 ; Allergic rhinitis due to animal (cat) (dog) hair and dander J30.81 ; Other allergic rhinitis J30.89 and Other chronic allergic conjunctivitis H10.45 [facility] [address] [place] [address] 09/22/2024 Ney Means Severe persistent asthma, uncomplicated J45.[address] [address] 10/03/2024 Ney Means Allergic rhinitis du e to pollen J30.1 ; Allergic rhinitis due to animal (cat) (dog) hair and dander J30.81 ; Other allergic rhinitis J30.89 and Other chronic allergic conjunctivitis H10.45 [facility] [address] [place] [address] [place] [address] [address] 10/17/2024 Ney Miguelangel Allergic rhinitis du e to pollen J30.1 ; Allergic rhinitis due to animal (cat) (dog) hair and dander J30.81 ; Other allergic rhinitis J30.89 and Other chronic allergic conjunctivitis H10.45 [facility] [address] [place] [address] 10/20/2024 Ney Means Severe persistent asthma, uncomplicated J45.[address] [address] 10/24/2024 Ney Means Allergic rhinitis du e to pollen J30.1 ; Allergic rhinitis due to animal (cat) (dog) hair and dander J30.81 ; Other allergic rhinitis J30.89 and Other chronic allergic conjunctivitis H10.45 [facility] [address] [place] [address] 11/01/2024 Ney Means Allergic rhinitis du e to pollen J30.1 ; Allergic rhinitis due to animal (cat) (dog) hair and dander J30.81 ; Other allergic rhinitis J30.89 and Other chronic allergic conjunctivitis H10.45 [facility] [address] [place] [address] 11/14/2024 Ney Means Allergic rhinitis du e to pollen J30.1 ; Allergic rhinitis due to animal (cat) (dog) hair and dander J30.81 ; Other allergic rhinitis J30.89 and Other chronic allergic conjunctivitis H10.45 [facility] [address] [place] [address] 11/17/2024 Ney Means Severe persistent asthma, uncomplicated J45.[address] [address] 11/28/2024 Ney Means Allergic rhinitis du e to pollen J30.1 ; Allergic rhinitis due to animal (cat) (dog) hair and dander J30.81 ; Other allergic rhinitis J30.89 and Other chronic allergic conjunctivitis H10.45 [facility] [address] [place] [address] 12/12/2024 Ney Means Allergic rhinitis du e to pollen J30.1 ; Allergic rhinitis due to animal (cat) (dog) hair and dander J30.81 ; Other allergic rhinitis J30.89 and Other chronic allergic conjunctivitis H10.45 [facility] [address] [place] [address] 12/26/2024 Cassidy Batista Allergic rhinitis du e to pollen J30.1 ; Severe persistent asthma, uncomplicated J45.50 ; Allergic rhinitis due to animal (cat) (dog) hair and dander J30.81 ; Other allergic rhinitis J30.89 ; Other chronic allergic conjunctivitis H10.45 ; Pruritus, unspecified L29.9 ; Allergy to peanuts Z91.010 ; Allergy to other foods Z91.018 and Allergy status to penicillin Z88.[address] [address] 01/09/2025 Ney Means Allergic rhinitis du e to pollen J30.1 ; Allergic rhinitis due to animal (cat) (dog) hair and dander J30.81 ; Other allergic rhinitis J30.89 and Other chronic allergic conjunctivitis H10.[address] [address] 06/23/2024 Meir Patterson Severe persistent asthma, uncomplicated J45.50 [facility] [address] [place] [address] 09/12/2024 Meir Patterson [facility] [address] [place] [address] 10/11/2024 Ney Means [address] [address] 11/01/2024 Ney Means [facility] [address] [place] [address] 12/26/2024 Ney Means [facility] [address] [place] [address] 01/10/2025 Ney Means Assessments Encounter Date Diagnosis (ICD Code) Assessment Notes Treatment Notes Treatment Clinical Notes Section Notes 01/18/2024 Allergic rhinitis due to pollen (ICD-10 - J30.1) 01/25/2024 Allergic rhinitis due to pollen (ICD-10 - J30.1) 01/28/2024 Severe persistent asthma, uncomplicated (ICD-10 - J45.50) 02/01/2024 Allergic rhinitis due to pollen (ICD-10 - J30.1) 02/09/2024 Allergic rhinitis due to pollen (ICD-10 - J30.1) 02/15/2024 Allergic rhinitis due to pollen (ICD-10 - J30.1) 02/22/2024 Allergic rhinitis due to pollen (ICD-10 - J30.1) 02/25/2024 Severe persistent asthma, uncomplicated (ICD-10 - J45.50) 02/29/2024 Allergic rhinitis due to pollen (ICD-10 - J30.1) 03/07/2024 Allergic rhinitis due to pollen (ICD-10 - J30.1) 03/14/2024 Allergic rhinitis due to pollen (ICD-10 - J30.1) 03/21/2024 Allergic rhinitis due to pollen (ICD-10 - J30.1) 03/24/2024 Severe persistent asthma, uncomplicated (ICD-10 - J45.50) 03/28/2024 Allergic rhinitis due to pollen (ICD-10 - J30.1) Yuri clearly suffers from atopic disease based upon our skin testing and clinical history. Accordingly, we have introduced a new, aggressive medication regimen, discussed nasal washes and allergy-specific avoidance measures. Continues on SCIT with benefit. Continues triple premedication without issue. Follow-up in 1 week to continue SCIT 03/28/2024 Severe persistent asthma, uncomplicated (ICD-10 - J45.50) Noted history of asthma my whole life. Currently on Advair Discus and Spriva. Last treated with oral steroids 3 years ago. He has not been hospitalized for lower airway issues since I was really little. He denies any recurrent upper or lower airway infections. He is a life-long nonsmoker. Currently manged by Dr. Oleary. Biologic work-up showed elevated IgE and AEC. He started at-home Dupixent with minimal noted difference though spirometry did show about 9% improvement in FVC. Given continued we elected to trial Tezspire. He does feel he is having improvement since starting Tezspire. Now 5 doses in. Would recommend obtaining repeat spriotmery next visit to asses objective benefit. He is downt to using KADI approx once a week, down from 2-3 times a week. Still using nebulized levalbuter in the AM, down from twice a day. Set to follow-up with pulm next month. Return in one month for Tezspire dosing and 3 months for spirmetry unless he has obtained PFT before then 04/04/2024 Allergic rhinitis due to pollen (ICD-10 - J30.1) 04/11/2024 Allergic rhinitis due to pollen (ICD-10 - J30.1) 04/18/2024 Allergic rhinitis due to pollen (ICD-10 - J30.1) 04/21/2024 Severe persistent asthma, uncomplicated (ICD-10 - J45.50) 04/25/2024 Allergic rhinitis due to pollen (ICD-10 - J30.1) 05/02/2024 Allergic rhinitis due to pollen (ICD-10 - J30.1) 05/09/2024 Allergic rhinitis due to pollen (ICD-10 - J30.1) 05/16/2024 Allergic rhinitis due to pollen (ICD-10 - J30.1) 05/19/2024 Severe persistent asthma, uncomplicated (ICD-10 - J45.50) 05/23/2024 Allergic rhinitis due to pollen (ICD-10 - J30.1) 06/06/2024 Allergic rhinitis due to pollen (ICD-10 - J30.1) Yuri clearly suffers from atopic disease based upon our skin testing and clinical history. Accordingly, we have introduced a new, aggressive medication regimen, discussed nasal washes and allergy-specific avoidance measures. Continues on SCIT with benefit. Continues triple premedication without issue. Procedure tolerated today without issue. Follow-up per schedule for SCIT 06/06/2024 Severe persistent asthma, uncomplicated (ICD-10 - J45.50) Noted history of asthma my whole life. Currently on Advair Discus and Spriva. Last treated with oral steroids 3 years ago. He has not been hospitalized for lower airway issues since I was really little. He denies any recurrent upper or lower airway infections. He is a life-long nonsmoker. Currently manged by Dr. Oleary. Biologic work-up showed elevated IgE and AEC. He started at-home Dupixent with minimal noted difference though spirometry did show about 9% improvement in FVC. Given continued we elected to trial Tezspire. He does feel he is having improvement since starting Tezspire. Still using KADI approx twice a week, down from up to 3 times a week. Still using nebulized levalbuter in the AM, down from twice a day. Spirotmery today with minimal difference from last. WIll plan on obtaining PFT to obtain further context. Keep f/u with Pulm. Return per schedule for Tezspire dosing and 2 months for Tezspire and E&M 06/23/2024 Severe persistent asthma, uncomplicated (ICD-10 - J45.50) 06/23/2024 Severe persistent asthma, uncomplicated (ICD-10 - J45.50) 06/27/2024 Allergic rhinitis due to pollen (ICD-10 - J30.1) 07/04/2024 Shortness of breath (ICD-10 - R06.02) 07/04/2024 Allergic rhinitis due to pollen (ICD-10 - J30.1) 07/11/2024 Allergic rhinitis due to pollen (ICD-10 - J30.1) 07/04/2024 Cough, unspecified (ICD-10 - R05.9) 07/18/2024 Allergic rhinitis due to pollen (ICD-10 - J30.1) 07/25/2024 Allergic rhinitis due to pollen (ICD-10 - J30.1) 08/01/2024 Allergic rhinitis due to pollen (ICD-10 - J30.1) 08/08/2024 Allergic rhinitis due to pollen (ICD-10 - J30.1) 07/21/2024 Severe persistent asthma, uncomplicated (ICD-10 - J45.50) 08/15/2024 Allergic rhinitis due to pollen (ICD-10 - J30.1) 08/22/2024 Allergic rhinitis due to pollen (ICD-10 - J30.1) 08/25/2024 Severe persistent asthma, uncomplicated (ICD-10 - J45.50) 08/29/2024 Severe persistent asthma, uncomplicated (ICD-10 - J45.50) Noted history of asthma my whole life. Currently on Advair Discus and Spriva. Last treated with oral steroids 3 years ago. He has not been hospitalized for lower airway issues since I was really little. He denies any recurrent upper or lower airway infections. He is a life-long nonsmoker. Currently manged by Dr. Oleary. Biologic work-up showed elevated IgE and AEC. He started at-home Dupixent with minimal noted difference though spirometry did show about 9% improvement in FVC. Given continued we elected to trial Tezspire. He does feel he is having improvement since starting Tezspire. Not due for dosing today. Still using KADI approx once a week, down from up to 3 times a week. He has since obtained PFT to obtain further context though still awaiting interpretation. Keep f/u with Pulm. Return per schedule for Tezspire dosing and 3 months for E&M 08/29/2024 Allergic rhinitis due to pollen (ICD-10 - J30.1) Yuri clearly suffers from atopic disease based upon our skin testing and clinical history. Accordingly, we have introduced a new, aggressive medication regimen, discussed nasal washes and allergy-specific avoidance measures. Continues on SCIT with benefit. Continues triple premedication without issue. Not due for SCIT today though about to reach MM. Reprots I would normally need steroids at this time of year. Follow-up per schedule for SCIT 09/05/2024 Allergic rhinitis due to pollen (ICD-10 - J30.1) 09/19/2024 Allergic rhinitis due to pollen (ICD-10 - J30.1) 09/22/2024 Severe persistent asthma, uncomplicated (ICD-10 - J45.50) 10/03/2024 Allergic rhinitis due to pollen (ICD-10 - J30.1) 10/17/2024 Allergic rhinitis due to pollen (ICD-10 - J30.1) 10/20/2024 Severe persistent asthma, uncomplicated (ICD-10 - J45.50) 10/24/2024 Allergic rhinitis due to pollen (ICD-10 - J30.1) 11/01/2024 Allergic rhinitis due to pollen (ICD-10 - J30.1) 11/14/2024 Allergic rhinitis due to pollen (ICD-10 - J30.1) 11/17/2024 Severe persistent asthma, uncomplicated (ICD-10 - J45.50) 11/28/2024 Allergic rhinitis due to pollen (ICD-10 - J30.1) 12/12/2024 Allergic rhinitis due to pollen (ICD-10 - J30.1) 12/26/2024 Severe persistent asthma, uncomplicated (ICD-10 - J45.50) Noted history of asthma my whole life. Currently on Advair and Spiriva. Last treated with oral steroids 3 years ago. He has not been hospitalized for lower airway issues since I was really little. He denies any recurrent upper or lower airway infections. He is a life-long nonsmoker. Currently manged by Dr. Oleary. Biologic work-up showed elevated IgE and AEC. He started at-home Dupixent with minimal noted difference though spirometry did show about 9% improvement in FVC. Given continued we elected to trial Tezspire. - Yuri continues to report improvement with TEZSPIRE, though returns today reporting increased symptoms in the last 2-3 weeks. Of note, he is behind on dosing. He has used his rescue inhaler a handful of times with benefit. - Spirometry today showing moderate obstruction, though improvement compared to prior report. - Discussed close monitoring of symptoms. Yuri is to contact our office or Dr. Oleary if symptoms do not improve following today's dose of TEZSPIRE. Lungs clear to auscultation on PE. He reports perceived wheezing, no associated symptoms. - TEZSPIRE dosing tolerated today without issue. - Continue medication regimen as above. Continue to rinse mouth after use. - Continue KADI as-needed per AAP. - Return in 4 weeks for further evaluation and management 12/26/2024 Allergic rhinitis due to pollen (ICD-10 - J30.1) Yuri clearly suffers from atopic disease based upon our skin testing and clinical history. Accordingly, we have introduced a new, aggressive medication regimen, discussed nasal washes and allergy-specific avoidance measures. Continues on SCIT with benefit. Continues triple premedication without issue. Not due for SCIT today. - Return as scheduled for SCIT 01/09/2025 Allergic rhinitis due to pollen (ICD-10 - J30.1) 01/09/2025 Allergic rhinitis due to animal (cat) (dog) hair and dander (ICD-10 - J30.81) 12/26/2024 Allergic rhinitis due to animal (cat) (dog) hair and dander (ICD-10 - J30.81) Follow allergen avoidance, meds and continue SCIT as an adjunctive treatment to current regimen 12/12/2024 Allergic rhinitis due to animal (cat) (dog) hair and dander (ICD-10 - J30.81) 11/28/2024 Allergic rhinitis due to animal (cat) (dog) hair and dander (ICD-10 - J30.81) 11/14/2024 Allergic rhinitis due to animal (cat) (dog) hair and dander (ICD-10 - J30.81) 11/01/2024 Allergic rhinitis due to animal (cat) (dog) hair and dander (ICD-10 - J30.81) 10/24/2024 Allergic rhinitis due to animal (cat) (dog) hair and dander (ICD-10 - J30.81) 10/17/2024 Allergic rhinitis due to animal (cat) (dog) hair and dander (ICD-10 - J30.81) 10/03/2024 Allergic rhinitis due to animal (cat) (dog) hair and dander (ICD-10 - J30.81) 09/19/2024 Allergic rhinitis due to animal (cat) (dog) hair and dander (ICD-10 - J30.81) 09/05/2024 Allergic rhinitis due to animal (cat) (dog) hair and dander (ICD-10 - J30.81) 08/29/2024 Allergic rhinitis due to animal (cat) (dog) hair and dander (ICD-10 - J30.81) Follow allergen avoidance, meds and continue SCIT as an adjunctive treatment to current regimen 08/22/2024 Allergic rhinitis due to animal (cat) (dog) hair and dander (ICD-10 - J30.81) 08/15/2024 Allergic rhinitis due to animal (cat) (dog) hair and dander (ICD-10 - J30.81) 08/08/2024 Allergic rhinitis due to animal (cat) (dog) hair and dander (ICD-10 - J30.81) 08/01/2024 Allergic rhinitis due to animal (cat) (dog) hair and dander (ICD-10 - J30.81) 07/25/2024 Allergic rhinitis due to animal (cat) (dog) hair and dander (ICD-10 - J30.81) 07/18/2024 Allergic rhinitis due to animal (cat) (dog) hair and dander (ICD-10 - J30.81) 07/11/2024 Allergic rhinitis due to animal (cat) (dog) hair and dander (ICD-10 - J30.81) 07/04/2024 Allergic rhinitis due to animal (cat) (dog) hair and dander (ICD-10 - J30.81) 07/04/2024 Wheezing (ICD-10 - R06.2) 06/27/2024 Allergic rhinitis due to animal (cat) (dog) hair and dander (ICD-10 - J30.81) 06/06/2024 Allergic rhinitis due to animal (cat) (dog) hair and dander (ICD-10 - J30.81) Follow allergen avoidance, meds and continue SCIT as an adjunctive treatment to current regimen 05/23/2024 Allergic rhinitis due to animal (cat) (dog) hair and dander (ICD-10 - J30.81) 05/16/2024 Allergic rhinitis due to animal (cat) (dog) hair and dander (ICD-10 - J30.81) 05/09/2024 Allergic rhinitis due to animal (cat) (dog) hair and dander (ICD-10 - J30.81) 05/02/2024 Allergic rhinitis due to animal (cat) (dog) hair and dander (ICD-10 - J30.81) 04/25/2024 Allergic rhinitis due to animal (cat) (dog) hair and dander (ICD-10 - J30.81) 04/18/2024 Allergic rhinitis due to animal (cat) (dog) hair and dander (ICD-10 - J30.81) 04/11/2024 Allergic rhinitis due to animal (cat) (dog) hair and dander (ICD-10 - J30.81) 04/04/2024 Allergic rhinitis due to animal (cat) (dog) hair and dander (ICD-10 - J30.81) 03/28/2024 Allergic rhinitis due to animal (cat) (dog) hair and dander (ICD-10 - J30.81) Follow allergen avoidance, meds and continue SCIT as an adjunctive treatment to current regimen 03/21/2024 Allergic rhinitis due to animal (cat) (dog) hair and dander (ICD-10 - J30.81) 03/14/2024 Allergic rhinitis due to animal (cat) (dog) hair and dander (ICD-10 - J30.81) 03/07/2024 Allergic rhinitis due to animal (cat) (dog) hair and dander (ICD-10 - J30.81) 02/29/2024 Allergic rhinitis due to animal (cat) (dog) hair and dander (ICD-10 - J30.81) 02/22/2024 Allergic rhinitis due to animal (cat) (dog) hair and dander (ICD-10 - J30.81) 02/15/2024 Allergic rhinitis due to animal (cat) (dog) hair and dander (ICD-10 - J30.81) 02/09/2024 Allergic rhinitis due to animal (cat) (dog) hair and dander (ICD-10 - J30.81) 02/01/2024 Allergic rhinitis due to animal (cat) (dog) hair and dander (ICD-10 - J30.81) 01/25/2024 Allergic rhinitis due to animal (cat) (dog) hair and dander (ICD-10 - J30.81) 01/18/2024 Allergic rhinitis due to animal (cat) (dog) hair and dander (ICD-10 - J30.81) 01/18/2024 Other allergic rhinitis (ICD-10 - J30.89) 01/25/2024 Other allergic rhinitis (ICD-10 - J30.89) 02/01/2024 Other allergic rhinitis (ICD-10 - J30.89) 02/09/2024 Other allergic rhinitis (ICD-10 - J30.89) 02/15/2024 Other allergic rhinitis (ICD-10 - J30.89) 02/22/2024 Other allergic rhinitis (ICD-10 - J30.89) 02/29/2024 Other allergic rhinitis (ICD-10 - J30.89) 03/07/2024 Other allergic rhinitis (ICD-10 - J30.89) 03/14/2024 Other allergic rhinitis (ICD-10 - J30.89) 03/21/2024 Other allergic rhinitis (ICD-10 - J30.89) 03/28/2024 Other allergic rhinitis (ICD-10 - J30.89) Follow allergen avoidance, meds and continue SCIT as an adjunctive treatment to current regimen 04/04/2024 Other allergic rhinitis (ICD-10 - J30.89) 04/11/2024 Other allergic rhinitis (ICD-10 - J30.89) 04/18/2024 Other allergic rhinitis (ICD-10 - J30.89) 04/25/2024 Other allergic rhinitis (ICD-10 - J30.89) 05/02/2024 Other allergic rhinitis (ICD-10 - J30.89) 05/09/2024 Other allergic rhinitis (ICD-10 - J30.89) 05/16/2024 Other allergic rhinitis (ICD-10 - J30.89) 05/23/2024 Other allergic rhinitis (ICD-10 - J30.89) 06/06/2024 Other allergic rhinitis (ICD-10 - J30.89) Follow allergen avoidance, meds and continue SCIT as an adjunctive treatment to current regimen 06/27/2024 Other allergic rhinitis (ICD-10 - J30.89) 07/04/2024 Abnormal results of pulmonary function studies (ICD-10 - R94.2) 07/04/2024 Other allergic rhinitis (ICD-10 - J30.89) 07/11/2024 Other allergic rhinitis (ICD-10 - J30.89) 07/18/2024 Other allergic rhinitis (ICD-10 - J30.89) 07/25/2024 Other allergic rhinitis (ICD-10 - J30.89) 08/01/2024 Other allergic rhinitis (ICD-10 - J30.89) 08/08/2024 Other allergic rhinitis (ICD-10 - J30.89) 08/15/2024 Other allergic rhinitis (ICD-10 - J30.89) 08/22/2024 Other allergic rhinitis (ICD-10 - J30.89) 09/05/2024 Other allergic rhinitis (ICD-10 - J30.89) 08/29/2024 Other allergic rhinitis (ICD-10 - J30.89) Follow allergen avoidance, meds and continue SCIT as an adjunctive treatment to current regimen 09/19/2024 Other allergic rhinitis (ICD-10 - J30.89) 10/03/2024 Other allergic rhinitis (ICD-10 - J30.89) 10/17/2024 Other allergic rhinitis (ICD-10 - J30.89) 10/24/2024 Other allergic rhinitis (ICD-10 - J30.89) 11/01/2024 Other allergic rhinitis (ICD-10 - J30.89) 11/14/2024 Other allergic rhinitis (ICD-10 - J30.89) 11/28/2024 Other allergic rhinitis (ICD-10 - J30.89) 12/12/2024 Other allergic rhinitis (ICD-10 - J30.89) 12/26/2024 Other allergic rhinitis (ICD-10 - J30.89) Follow allergen avoidance, meds and continue SCIT as an adjunctive treatment to current regimen 01/09/2025 Other allergic rhinitis (ICD-10 - J30.89) 01/09/2025 Other chronic allergic conjunctivitis (ICD-10 - H10.45) 12/26/2024 Other chronic allergic conjunctivitis (ICD-10 - H10.45) Given ocular signs and symptoms I encouraged allergy avoidance measures and meds as above. If symptoms persist, consider adding additional medications including intraocular antihistamine/mast cell stabilizer, PRN and continue SCIT as an adjunctive measure 12/12/2024 Other chronic allergic conjunctivitis (ICD-10 - H10.45) 11/28/2024 Other chronic allergic conjunctivitis (ICD-10 - H10.45) 11/14/2024 Other chronic allergic conjunctivitis (ICD-10 - H10.45) 11/01/2024 Other chronic allergic conjunctivitis (ICD-10 - H10.45) 10/24/2024 Other chronic allergic conjunctivitis (ICD-10 - H10.45) 10/17/2024 Other chronic allergic conjunctivitis (ICD-10 - H10.45) 10/03/2024 Other chronic allergic conjunctivitis (ICD-10 - H10.45) 09/05/2024 Other chronic allergic conjunctivitis (ICD-10 - H10.45) 09/19/2024 Other chronic allergic conjunctivitis (ICD-10 - H10.45) 08/22/2024 Other chronic allergic conjunctivitis (ICD-10 - H10.45) 07/25/2024 Other chronic allergic conjunctivitis (ICD-10 - H10.45) 08/29/2024 Other chronic allergic conjunctivitis (ICD-10 - H10.45) Given ocular signs and symptoms I encouraged allergy avoidance measures and meds as above. If symptoms persist, consider adding additional medications including intraocular antihistamine/mast cell stabilizer, PRN and continue SCIT as an adjunctive measure 08/15/2024 Other chronic allergic conjunctivitis (ICD-10 - H10.45) 08/08/2024 Other chronic allergic conjunctivitis (ICD-10 - H10.45) 08/01/2024 Other chronic allergic conjunctivitis (ICD-10 - H10.45) 07/04/2024 Other chronic allergic conjunctivitis (ICD-10 - H10.45) 07/18/2024 Other chronic allergic conjunctivitis (ICD-10 - H10.45) 07/11/2024 Other chronic allergic conjunctivitis (ICD-10 - H10.45) 06/27/2024 Other chronic allergic conjunctivitis (ICD-10 - H10.45) 06/06/2024 Other chronic allergic conjunctivitis (ICD-10 - H10.45) Given ocular signs and symptoms I encouraged allergy avoidance measures and meds as above. If symptoms persist, consider adding additional medications including intraocular antihistamine/mast cell stabilizer, PRN and continue SCIT as an adjunctive measure 05/23/2024 Other chronic allergic conjunctivitis (ICD-10 - H10.45) 05/16/2024 Other chronic allergic conjunctivitis (ICD-10 - H10.45) 05/09/2024 Other chronic allergic conjunctivitis (ICD-10 - H10.45) 05/02/2024 Other chronic allergic conjunctivitis (ICD-10 - H10.45) 04/25/2024 Other chronic allergic conjunctivitis (ICD-10 - H10.45) 04/18/2024 Other chronic allergic conjunctivitis (ICD-10 - H10.45) 04/11/2024 Other chronic allergic conjunctivitis (ICD-10 - H10.45) 04/04/2024 Other chronic allergic conjunctivitis (ICD-10 - H10.45) 03/28/2024 Other chronic allergic conjunctivitis (ICD-10 - H10.45) Given ocular signs and symptoms I encouraged allergy avoidance measures and meds as above. If symptoms persist, consider adding additional medications including intraocular antihistamine/mast cell stabilizer, PRN and continue SCIT as an adjunctive measure 03/21/2024 Other chronic allergic conjunctivitis (ICD-10 - H10.45) 03/14/2024 Other chronic allergic conjunctivitis (ICD-10 - H10.45) 03/07/2024 Other chronic allergic conjunctivitis (ICD-10 - H10.45) 02/29/2024 Other chronic allergic conjunctivitis (ICD-10 - H10.45) 02/22/2024 Other chronic allergic conjunctivitis (ICD-10 - H10.45) 02/15/2024 Other chronic allergic conjunctivitis (ICD-10 - H10.45) 02/09/2024 Other chronic allergic conjunctivitis (ICD-10 - H10.45) 02/01/2024 Other chronic allergic conjunctivitis (ICD-10 - H10.45) 01/25/2024 Other chronic allergic conjunctivitis (ICD-10 - H10.45) 01/18/2024 Other chronic allergic conjunctivitis (ICD-10 - H10.45) 03/28/2024 Allergy to peanuts (ICD-10 - Z91.010) Noted prior episode of anaphylaxis as a child after eating a cookie with tree nuts. Remembers SOB and awaking in a hospital. Details otherwise unclear. Has avoided TN and PN since. Does not have AIE on hand. Prior. SPT to TN and PN, all of which were unequivocally +. Follow FAP and discussed keeping AIE on at all times. Continue absolute avoidance 06/06/2024 Pruritus, unspecified (ICD-10 - L29.9) Reports increased tichiness across his back and extremties for the past few weeks. He thinks it is something in my laundry. No noted lesions occuring. He does reprots prior bloodwork from PCP that was normal other than my blood sugar. Unclear if antihistamines help. He did starting dirnking a surpluse of energy drinks around the time of which he has since stopped. At this time will plan to swich out laundry detergent to [employer]. If issues persist will trial high dose antihistamines. If despite all off this itch continues will recheck CBC and LFTs before potential trial of doxipen 08/29/2024 Pruritus, unspecified (ICD-10 - L29.9) Reports increased tichiness across his back and extremties for the past few weeks. He thinks it is something in my laundry. No noted lesions occuring. He does reprots prior bloodwork from PCP that was normal other than my blood sugar. Unclear if antihistamines help. He did starting dirnking a surpluse of energy drinks around the time of which he has since stopped. He has attempted to swich out laundry detergent to [employer] Clear which been benefical. If issues persist will trial high dose antihistamines. If despite all off this itch continues will recheck CBC and LFTs before potential trial of doxipen 12/26/2024 Pruritus, unspecified (ICD-10 - L29.9) Reports increased tichiness across his back and extremties for the past few weeks. He thinks it is something in my laundry. No noted lesions occuring. He does reprots prior bloodwork from PCP that was normal other than my blood sugar. Unclear if antihistamines help. He did starting dirnking a surpluse of energy drinks around the time of which he has since stopped. He has attempted to swich out laundry detergent to [employer] which been benefical. If issues persist will trial high dose antihistamines. If despite all off this itch continues will recheck CBC and LFTs before potential trial of doxipen 12/26/2024 Allergy to peanuts (ICD-10 - Z91.010) Noted prior episode of anaphylaxis as a child after eating a cookie with tree nuts. Remembers SOB and awaking in a hospital. Details otherwise unclear. Has avoided TN and PN since. Does not have AIE on hand. Prior. SPT to TN and PN, all of which were unequivocally +. Follow FAP and discussed keeping AIE on at all times. Continue absolute avoidance 08/29/2024 Allergy to peanuts (ICD-10 - Z91.010) Noted prior episode of anaphylaxis as a child after eating a cookie with tree nuts. Remembers SOB and awaking in a hospital. Details otherwise unclear. Has avoided TN and PN since. Does not have AIE on hand. Prior. SPT to TN and PN, all of which were unequivocally +. Follow FAP and discussed keeping AIE on at all times. Continue absolute avoidance 06/06/2024 Allergy to peanuts (ICD-10 - Z91.010) Noted prior episode of anaphylaxis as a child after eating a cookie with tree nuts. Remembers SOB and awaking in a hospital. Details otherwise unclear. Has avoided TN and PN since. Does not have AIE on hand. Prior. SPT to TN and PN, all of which were unequivocally +. Follow FAP and discussed keeping AIE on at all times. Continue absolute avoidance 03/28/2024 Allergy to other foods (ICD-10 - Z91.018) as above 03/28/2024 Allergy status to penicillin (ICD-10 - Z88.0) He reports throwing-up after taking PCN at age 11. Unsure if any other sympyoms occured. And avodied since. He is interested in PCN testing. Otherwise continue absolute avoidance 06/06/2024 Allergy to other foods (ICD-10 - Z91.018) as above 08/29/2024 Allergy to other foods (ICD-10 - Z91.018) as above 12/26/2024 Allergy to other foods (ICD-10 - Z91.018) as above 12/26/2024 Allergy status to penicillin (ICD-10 - Z88.0) He reports throwing-up after taking PCN at age 11. Unsure if any other sympyoms occured. And avodied since. He is interested in PCN testing. Otherwise continue absolute avoidance 08/29/2024 Allergy status to penicillin (ICD-10 - Z88.0) He reports throwing-up after taking PCN at age 11. Unsure if any other sympyoms occured. And avodied since. He is interested in PCN testing. Otherwise continue absolute avoidance 06/06/2024 Allergy status to penicillin (ICD-10 - Z88.0) He reports throwing-up after taking PCN at age 11. Unsure if any other sympyoms occured. And avodied since. He is interested in PCN testing. Otherwise continue absolute avoidance 08/18/2024 Other 01/28/2024 Other 02/25/2024 Other 03/24/2024 Other 04/21/2024 Other 05/19/2024 Other 06/23/2024 Other 07/21/2024 Other 08/25/2024 Other 09/22/2024 Other 10/20/2024 Other 11/17/2024 Other Plan Of Treatment Next Appt Details Provider Name:Ney Means , 01/26/2025 10:00:00 AM, [email or web address], [address], [place], [address], Provider Name:Ney Means , 02/07/2025 10:00:00 AM, [email or web address], [address], [place], [address], Provider Name:Cassidy collins, 03/27/2025 01:30:00 PM, [email or web address], [place], [address], Insurance Providers Payer Name Payer Address Payer Phone Subscriber Number Group Number Insured Name Patient Relationship to Insured Coverage Start Date Coverage End Date [employer] [address] [address] [place], [place] [id number] [phone] [id number] Yuri Guzman Self - patient is the insured 4 [employer] [address] [place], [place] [id number] [id number] 1 Thomas Yuri Self - patient is the insured Medical (General) History Medical History History ICD Code Other allergic rhinitis J30.89 Allergic rhinitis due to pollen J30.1 Other chronic allergic conjunctivitis H1 0.45 Allergy to other foods Z91.018 Allergy to peanuts Z91.010 Allergic rhinitis due to animal (cat) (d og) hair and dander J30.81 Severe persistent asthma, uncomplicated J45.50 Surgical History Surgery Date(Month/Year) gallbladder removed deviated septum 2019
--- OUTSIDE RECORDS SUMMARY | 2025-01-17 02:11 | XMS_ITS | Continuity of Care Document ---
Author Name [facility] Organization [facility] Care Team Providers Care Supervisor Nutritional Yeast Name Role Phone [facility] Unavailable Unavailable Problems Combined list of problems from Department of Defense and Veterans Affairs facilities. It does not include entries that were removed or entered in error. Problem Status Onset Date Problem Type Date of Resolution Comments Source visit for: postsurgical exam Inactive Condition DoD Encounters Combined list of: 1) Encounters from Department of Veterans Affairs facilities going backup to the last 18 months, not all VA inpatient encounters are included; 2) Encounters from the Department of Defense facilities going backup to 280 months. Location Location Details Encounter Type Encounter Number Reason For Visit Attending Provider ADM Date DC Date Status Disposition Source [facility] Lucas PETE ([facility]Benigno laryngolo gy) OUTPATIENT [id number] f/u from surgery CHITRA COON 07/02 Released w/o Limitations [facility] Lucas PETE ([facility])(O ann meier) Social History Combined list of available smoking, tobacco, and other social history from Department of Defense and Veterans Affairs facilities. Social History Type Response Date Comment Sourc e This section is an empty social history section. DoD
--- OUTSIDE RECORDS SUMMARY | 2025-01-17 02:11 | XMS_ITS | Clinical Summary ---
Author Organization [facility] Address [address] [place] [id number] Phone [email or web address] Team Providers Care Lumber Sorter Machine Name Role Phone Yolande Arceo DO Primary Care Provider Unavailabl e Allergies Active Allergy Reactions Criticality Noted Date Comments Egg-Derived Products Low 02/18/2019 Nausea and upset stomach, (eggs in food ok) Other Anaphylaxis High 12/30/2017 NUTS Penicillins Nausea And Vomiting Medium 12/30/2017 As a young child Medications levalbuterol (XOPENEX) 1.25 MG/3ML nebulizer solutionIndicatio ns:Unspecified asthma, uncomplicated INHALE 3 M[address]ILITER BY NEBULIZATION ROUTE EVERY 12 HOURS 144 mL 11 05/06/20 21 Active atorvastatin (LIPITOR) 20 MG tablet Take 10 mg by mouth every night. Active Cholecalciferol (Vitamin D3) 125 MCG (5000 UT) capsule Active Digestive Enzymes capsule Take 1 capsule by mouth once daily as needed. Active Lactobacillus (Acidophilus Probiotic) 10 MG tablet Active Mckee-3 Fatty Acids (Mckee-3 Fish Oil) 1000 MG capsule Active fluticasone-salme terol (Advair Diskus) 500-50 MCG/DOSE diskus inhalerIndication s:Allergic disorder, subsequent encounter,Mild intermittent asthma without complication Inhale 1 puff 2 (two) times a day. Rinse mouth with water after use to reduce aftertaste and incidence of candidiasis. Do not swallow. 60 each 3 07/02/19 22 Active Spiriva HandiHaler 18 MCG per inhalation capsuleIndication s:Unspecified asthma, uncomplicated INHALE THE CONTENTS OF 1 CAPSULE BY MOUTH USING 2 INHALATIONS VIA HANDIHALER ONCE DAILY 30 capsule 11 07/30/19 22 Active montelukast (SINGULAIR) 10 MG tabletIndications :Unspecified asthma, uncomplicated TAKE 1 TABLET BY MOUTH EVERY DAY IN THE EVENING 30 tablet 11 07/30/19 Active albuterol HFA 108 (90 Base) MCG/ACT inhalerIndication s:Allergic disorder, subsequent encounter,Mild intermittent asthma without complication Inhale 2 puffs every 6 (six) hours if needed for wheezing. 18 g 09/03/19 Active loratadine (CLARITIN) 10 MG tabletIndications :Allergic disorder, subsequent encounter Take 1 tablet (10 mg total) by mouth 1 (one) time each day. 90 tablet 09/03/19 Active fluticasone (FLONASE) 50 MCG/ACT nasal sprayIndications: Allergic disorder, subsequent encounter Administer 1 spray into each nostril 1 (one) time each day. 16 g 09/03/19 Active Active Problems Problem Noted Date Diagnosed Date Allergies 07/01/2021 Eczema 07/01/2021 Asthma 11/05/2018 Overview (07/01/2021): Last Assessment & Plan: -chronic since childhood -Continue PRN Xopenex Fatty liver 11/05/2018 Overview (07/01/2021): Last Assessment & Plan: -obesity -dietary couseling Transaminitis 11/05/2018 Overview (07/01/2021): Last Assessment & Plan: Status post lap deja. Unable to do cholangiogram. -T bili and AST, ALT trending up MRCP showed 2.5 mm distal common bile duct filling defect could represent stone. GI consulted. Plan for ERCP today. Immunizations Immunization Administration Dates Next Due Influenza multi-dose VIAL (A fluria,Fluzone) trivalent (CVX-141) 04/18/2019 Family History Medical History Relation Name Comments Diabetes Mother Stroke Paternal Grandfather Relation Name Status Comments Mother Paternal Grandfather Social History Tobacco Use Types Packs/Day Years Used Date Smoking Tobacco: Never Smokeless Tobacco: Never Alcohol Use Standard Drinks/Week Comments Never 0 (1 standard drink = 0.6 oz pur e alcohol) Intimate Partner Violence Answer Date R ecorded Insults You Not on file 03/15/2021 Threatens You Not on file 03/15/2021 Screams at You Not on file 03/15/2021 Physically Hurt Not on file 03/15/2021 Intimate Partner Violence Score Not on file 03/15/2021 Alcohol Use Answer Date Recorded Alcohol Use Status Never 05/22/2022 Stress Answer Date Recorded Stress in your Life Not on file 04/13/2024 Dealing with Stress 3 04/13/2024 Sex and Gender Information Value Date Recorded Sex Assigned at Male 06/21/2021 10:20 AM [employer] Legal Sex Male 11:31 AM CDT Gender Identity Male 06/21/2021 10:20 AM [employer] Sexual Orientation Not on file Last Filed Vital Signs Vital Sign Reading Time Taken Comments Blood Pressure 114/76 03/20/2023 12:00 AM CDT Pulse 94 07/02/2021 3:49 PM PST Temperature 36.7 C (98.1 F) 07/02/2021 3:49 PM PST Respiratory Rate 16 07/02/2021 3:49 PM PST Oxygen Saturation 96% 07/02/2021 3:49 PM PST Inhaled Oxygen Concentration - - Weight 103 kg (226 lb) 03/20/2023 12:00 AM CDT Height 177.8 cm (5' 10) 03/20/2023 12:00 AM CDT Body Mass Index 32.43 03/20/2023 12:00 AM CDT Plan of Treatment Health Maintenance Due Date Last Done Comments CT Colonography 1979 Colonoscopy 1979 Colorectal Cancer Screening Combo 1980 DNA Cologuard 1979 Dental Cleaning/Exam 1979 FIT or FOBT Test 1980 HIV Screening 1980 Hepatitis C Screening 1980 Sigmoidoscopy 1979 Asthma Spirometry 10/01/1984 HPV Immunization (1 - Male 3 -dose series) 10/01/1994 Annual Preventive Exam 10/01/1997 Hep B Infection Screening - Triple Screen 10/01/1997 Hepatitis B Immunization (1 of 3 - 19+ 3-dose series) 10/01/1998 Pneumococcal: Ped (0 to 5 Yr s) and At-Risk Member (6 to 64 Yrs) (1 of 2 - PCV) 10/01/1998 Tetanus Diphtheria and Pertu ssis Immunization (1 - Tdap) 10/01/1998 Covid-19 Immunization (1 - 2 -25 season) 2024 Influenza Immunization (#1) 2025 04/18/2019 HIB Immunization Aged Out No longer e ligible based on patient's age to complete this topic Hepatitis A Immunization Aged Out No longer eligible based on patient's age to complete this topic Polio Immunization Aged Out No longer eligible based on patient's age to complete this topic Insurance [facility] HSA Care Teams Lumber Sorter Machine Relationship Specialty Start Date End Date YOLANDE ARCEO - General 10/13/22
[2025-01-17 11:21] VITALS: BP 135/82; PULSE 110; RESP 20; TEMP 36.3; O2SAT 97
[2025-01-17] MEDS: LACTATED RINGERS 1,000 ML 150 ML IV CONT (11:22)
--- NOTE | 2025-01-17 11:26 | P.PNAN_ITS ---
Anes - Initial Pre Proc Eval Procedure: Operation Date: 01/17/25 12:30 Proposed Procedures p Colonoscopy - Nikolai Mckeon MD Date/Time: 01/17/25 11:26 Surgeon: Nikolai Mckeon MD Pre Op Diagnosis: Other fecal abnormalities Patient Data Age: 44 Gender: M Height: 1.78 m Weight: 95.6 kg Last Vital Signs Temp 97.4 F L 01/17/25 11:21 Pulse 110 H 01/17/25 11:21 Resp 20 01/17/25 11:21 BP 135/82 01/17/25 11:21 Pulse Ox 97 01/17/25 11:21 O2 Del Method Room Air 01/17/25 11:21 Allergies Allergy/AdvReac Type Severity Reaction Status Date / Time egg Allergy Unknown Other Verified 01/17/25 11:19 peanut Allergy Unknown Other Verified 01/17/25 11:19 Penicillins Allergy Unknown Other Verified 01/17/25 11:19 Home Medications ?Medication ?Instructions ?Recorded ?Confirmed ?Type albuterol sulfate 90 mcg/actuation 1 inh inhalation DAILY 10/29/22 01/17/25 History aerosol inhaler fluticasone 500 mcg-salmeterol 50 1 inh inhalation Q12H 10/29/22 01/17/25 History mcg/dose blistr powdr for inhalation (Advair Diskus) montelukast 10 mg tablet 10 mg PO QPM 10/29/22 01/17/25 History tiotropium bromide 1.25 2 puff inhalation Q24H 10/29/22 01/17/25 History mcg/actuation mist for inhalation (Spiriva Respimat) azelastine 0.05 % eye drops 1 drp EACH EYE BID PRN allergy 03/06/23 01/17/25 History symptoms epinephrine 0.3 mg/0.3 mL 0.3 ml IM ONCE 03/06/23 01/02/25 History injection, auto-injector atorvastatin 40 mg tablet 40 mg PO DAILY 04/06/24 01/17/25 History dapagliflozin propanediol 10 mg 10 mg PO DAILY 04/06/24 01/17/25 History tablet (Farxiga) famotidine 40 mg tablet 40 mg PO DAILY 04/06/24 01/17/25 History levalbuterol HCl 1.25 mg/3 mL 1.25 mg (3 mL) inhalation TID PRN 04/06/24 01/17/25 Rx solution for nebulization shortness of breath or wheezing 90 days #810 mL tezepelumab-ekko 210 mg/1.91 mL 210 mg subcut MONTHLY 04/06/24 01/02/25 History (110 mg/mL) subcutaneous pen injector (Tezspire) calcium polycarbophil 625 mg 1,250 mg PO DAILY 01/02/25 01/17/25 History tablet (Fiber (calcium polycarbophil)) omega 7-dsy-dzg-fish oil 1,000 mg 2 cap PO DAILY 01/02/25 01/17/25 History (120 mg-180 mg) capsule (Fish Oil) Patient hx anesthesia problems: none Family hx anesthesia problems: none Results Review: All pre-operative results and documents have been reviewed as part of the pre- operative evaluation. PMFSH Past Medical History Medical History Allergies Family History Family History Mother Cancer of kidney Diabetes mellitus Unknown Cancer Father Multiple sclerosis COPD (chronic obstructive pulmonary disease) Social History Social History Smoking status: Never smoker Alcohol intake: never Substance use: never Substance use type: does not use Living arrangements: with family Occupation/Education: occupation Gender identity (if verbalized by the patient): Male Spiritual care concerns: No Anes - Eval Final PreProcedure Day of Procedure 01/17/25 11:26 Patient weight: obese Lungs: normal air movement Airway: Mallampati scale class II Neurological: alert and oriented Last oral intake: >/= 8 hours ASA classification: II Emergent: no Anesthetic plan: proceed Anesthesia type and monitoring: general GIVS and standard monitoring Results Review: All pre-operative results and documents have been reviewed as part of the pre- operative evaluation. Hyperlipidemia, preDM. Informed Consent: The patient's anesthetic plan and its attendant risks and benefits were discussed with the patient/family/POA. Questions were solicited and answers provided to the satisfaction of the patient/family/POA.
--- NOTE | 2025-01-17 12:32 | PM.HPGS ---
History of Present Illness History of Present Illness Consent: Risks, benefits, and alternatives have been discussed and questions answered. Patient agrees to proceed with procedure. Chief complaint: Other fecal abnormalities Narrative: Yuri Guzman Jr. is a 44 year old male here for colonoscopy, had + cologuard Review of Systems Review of Systems: All systems reviewed & are unremarkable except as noted in HPI and below PMFSH Past Medical History Medical History (Updated 01/17/25 @ 12:32 by Nikolai Mckeon MD) Positive colorectal cancer screening using Cologuard test Allergies Family History Family History Mother Cancer of kidney Diabetes mellitus Unknown Cancer Father Multiple sclerosis COPD (chronic obstructive pulmonary disease) Social History Social History Smoking status: Never smoker Alcohol intake: never Substance use: never Substance use type: does not use Living arrangements: with family Occupation/Education: occupation Gender identity (if verbalized by the patient): Male Spiritual care concerns: No Meds Home Medications and Allergies Home Medications ?Medication ?Instructions ?Recorded ?Confirmed ?Type albuterol sulfate 90 mcg/actuation 1 inh inhalation DAILY 10/29/22 01/17/25 History aerosol inhaler fluticasone 500 mcg-salmeterol 50 1 inh inhalation Q12H 10/29/22 01/17/25 History mcg/dose blistr powdr for inhalation (Advair Diskus) montelukast 10 mg tablet 10 mg PO QPM 10/29/22 01/17/25 History tiotropium bromide 1.25 2 puff inhalation Q24H 10/29/22 01/17/25 History mcg/actuation mist for inhalation (Spiriva Respimat) azelastine 0.05 % eye drops 1 drp EACH EYE BID PRN allergy 03/06/23 01/17/25 History symptoms epinephrine 0.3 mg/0.3 mL 0.3 ml IM ONCE 03/06/23 01/02/25 History injection, auto-injector atorvastatin 40 mg tablet 40 mg PO DAILY 04/06/24 01/17/25 History dapagliflozin propanediol 10 mg 10 mg PO DAILY 04/06/24 01/17/25 History tablet (Farxiga) famotidine 40 mg tablet 40 mg PO DAILY 04/06/24 01/17/25 History levalbuterol HCl 1.25 mg/3 mL 1.25 mg (3 mL) inhalation TID PRN 04/06/24 01/17/25 Rx solution for nebulization shortness of breath or wheezing 90 days #810 mL tezepelumab-ekko 210 mg/1.91 mL 210 mg subcut MONTHLY 04/06/24 01/02/25 History (110 mg/mL) subcutaneous pen injector (Tezspire) calcium polycarbophil 625 mg 1,250 mg PO DAILY 01/02/25 01/17/25 History tablet (Fiber (calcium polycarbophil)) omega 4-txq-ppi-fish oil 1,000 mg 2 cap PO DAILY 01/02/25 01/17/25 History (120 mg-180 mg) capsule (Fish Oil) Allergies Allergy/AdvReac Type Severity Reaction Status Date / Time egg Allergy Unknown Other Verified 01/17/25 11:19 peanut Allergy Unknown Other Verified 01/17/25 11:19 Penicillins Allergy Unknown Other Verified 01/17/25 11:19 Vital Signs Vital Signs - 24 hr 01/17/25 11:21 Temperature 97.4 F L Pulse Rate 110 H Respiratory Rate 20 Blood Pressure 135/82 Pulse Oximetry 97 Oxygen Delivery Room Air Exam Const: General: comfortable and no acute distress HENMT: Face/Nose/Sinus: Normal nares present Eyes: General: appearance normal, both eyes and all related structures Neck: Neck: no JVD Resp: Auscultation: clear to auscultation bilaterally Cardio: Rate: regular rate Rhythm: regular rhythm GI: Inspection: non-distended GI Palp: Yes Soft to palpation Skin: General skin exam: normal color Neuro: Speech: normal speech Extrem: General: normal to inspection Psych: Mental Status: mental status grossly normal Assessment and Plan Assessment and plan (1) Positive colorectal cancer screening using Cologuard test: Code(s): R19.5 - Other fecal abnormalities Status: Acute Assessment and Plan: colonoscopy
--- NOTE | 2025-01-17 12:48 | S_PTH ---
PATIENT: Yuri Guzman Jr. LOC: [facility] Burns#:[id number] AGE/SX: 44/M ROOM: RE01/17/[address]: Nikolai Mckeon MD : 1980 BED: DIS: 01/17/2025 SPEC #: [id number] RECD: 01/17/25 13:21 STATUS: MANNY ANDERSEN #: [id number] TRENT: 01/17/25 12:[address]: Nikolai Mckeon DEPT: [facility] Surgical RECD BY: uQentin Dye ENTERED: 01/17/25 13:21 SP TYPE: Surgical OTHR DR: Nikia Gallardo, PA Tissues: A - Colon Polypectomy Procedures: Hematoxylin and Eosin Stain Gross and Microscopic Level 4
[2025-01-17 12:50] VITALS: BP 97/66; PULSE 100; RESP 16; O2SAT 93
[2025-01-17 13:00] VITALS: BP 99/66; PULSE 94; RESP 15; O2SAT 93
[2025-01-17 13:10] VITALS: BP 101/66; PULSE 93; RESP 15; O2SAT 93
== END 2025-01-17 13:25 | disposition home or self-care (01) ==
PROVIDERS: PCP Physician Assistant; Referring Provider Physician Assistant; Visit Provider Internal Medicine Gastroenterology
PROC: 0DJD8ZZ Inspection of Lower Intestinal Tract, Via Natural or Artificial Opening Endoscopic (ICD-10-PCS; CPT 45378; principal; 2025-01-17 12:30)
DX: D12.3 Benign neoplasm of transverse colon (principal); K63.5 Polyp of colon; K64.8 Other hemorrhoids; E78.5 Hyperlipidemia, unspecified; R73.03 Prediabetes; E66.9 Obesity, unspecified; Z68.30 Body mass index [BMI] 30.0-30.9, adult; Z79.51 Long term (current) use of inhaled steroids; Z79.84 Long term (current) use of oral hypoglycemic drugs; Z79.85 Long-term (current) use of injectable non-insulin antidiabetic drugs; Z80.51 Family history of malignant neoplasm of kidney
CPT/HCPCS: 45385; 88305; J2003; J2704; J7120